=== PATIENT | male | born 1945 | race Caucasian/White ===

== ENCOUNTER 2024-04-27 10:59 | Day surgery (SDC) | payer MEDICARE, OTHER, SELFPAY ==
[2024-04-27] VITALS (10 sets, daily range): BP systolic 118–158; BP diastolic 75–89; BMI 21.1
[2024-04-27] MEDS: NSS 205 ML IV (11:25)
[2024-04-27 12:29] LABS: ACT-LR - POC 377 Seconds (116-155)
[2024-04-27 12:50] LABS: ACT-LR - POC 339 Seconds (116-155)
[2024-04-27] MEDS: NSS 1000 IV (13:40)
--- NOTE | 2024-04-27 13:50 | ITS.CL.CATH ---
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
Cardiac Catheterization
Procedure Report:
CARDIAC CATHETERIZATION REPORT
Date of Procedure: 04/27/2024
Referring: Santos Jonas MD
Indication: Progressive angina in patient with severe cardiac and severe pulmonary disease
HEMODYNAMIC DATA
AO: 144/68
LV: 144/11
LEFT VENTRICULOGRAPHY: Anterolateral hypokinesis with EF 40%. There is very impressive honeycombing of the lung zavala consistent with the known history of pulmonary fibrosis
CORONARY ANGIOGRAPHY
Dominance: Right
Left Main: Mild proximal stenosis.
LAD: The LAD is heavily calcified. There is 60% proximal LAD stenosis with 80% mid LAD stenosis just proximal to the origin of the previously stented segment. The stent itself remains widely patent with no restenosis. There is a second stent in
the more distal part of the mid LAD which is widely patent with no restenosis. However, distal to the stent is progressive disease with 70% stenosis. There is a 80% apical LAD stenosis. The medium sized first diagonal branch has some mild luminal
disease and 40% mid stenosis. The medium sized second diagonal which originates from the mid LAD stented segment has 60-70% ostial stenosis.
Circumflex: There is a small ramus intermedius branch without disease. A very large proximally arising OM1 has a widely patent stent in the mid portion with no restenosis and has otherwise mild luminal disease there is 80% circumflex stenosis just
distal to the takeoff of OM1. This is a highly angulated segment. There are several more distal obtuse marginal branches which are small without disease and the circumflex terminates with a medium sized left posterolateral branch which is not
diseased.
RCA: Tandem 80% and 90% mid RCA lesions both significantly progressed compared with the prior study from 2021. The RCA terminates with a small PDA and a small posterolateral branch
Angioplasty: At the conclusion of diagnostic study we discussed his multivessel CAD and options for treatment. Surgical revascularization would be probably the best treatment for his CAD; however, he has significant pulmonary fibrosis and requires
O2 for activity. He is at best a high risk surgical candidate and most likely a prohibitive surgical candidate. He and I both felt percutaneous revascularization is complete as we could safely give him would be the best plan. Accordingly I made a
decision to begin a staged revascularization first with multiple segments in the LAD with a plan to return in 1-2 weeks to treat the tandem high-grade mid RCA lesions. Heparin was used for anticoagulation. A 6 British EBU 3.75 guide catheter was
used. We were unable to get a BMW wire through the distal LAD disease. A hydrophilic whisper wire was successfully passed with some effort into the distal LAD. This was followed by balloon angioplasty of the distal LAD lesion with a 2.0 x 15 trek
to 8 sandy. With great LOC we were able to get a 2.5 x 23 Xience GRISEL to the distal LAD lesion where was deployed at 14 sandy then postdilated with a 2.5 NC trek to 18 sandy. We were unable to get a 3.0 x 18 Xience GRISEL across the mid LAD lesion. A 6
British guide liner was then advanced into the vessel and with this to enhance backup support we were able to get the 3.0 x 18 stent to treat the mid LAD lesion. The stent was placed proximally overlapping fashion with the previously placed mid LAD
stent. Deployment at 15 sandy was followed by postdilatation with a 3.0 NC trek to 17 sandy. The angiographic result was outstanding. We had noticed by this time that the proximal LAD lesion which angiographically appeared about 60% severity was
hemodynamically significant as any time a guide liner was passed into this lesion the systolic pressure fell 80-100 mmHg. We therefore placed a proximally overlapping 3.0 x 12 Xience GRISEL into the proximal LAD. The stent was deployed at 15 sandy then
postdilated with a 3.0 NC trek to 17 sandy. The final angiographic result at all lesion sites was outstanding with no residual stenosis. There were no procedural complications.
This was a complex procedure requiring multiple balloons and stents and several guidewires.
Closure Device: 6 British Angio-Seal RFA. Of note similar to 2021, we were easily able to cannulate the right radial artery but could not pass a soft guidewire more than several centimeters and converted to a femoral approach
Radiation (mGy): 728
DAP (cm2.Gy): 51.0
Fluoroscopy time: 16.1-minute
CONCLUSIONS
1: Severe triple-vessel CAD as described
2: Plan made for staged revascularization with PCI as he is either extremely high risk or prohibitive surgical candidate based on his lung disease.
3. Successful stenting of distal LAD disease using 2.5 x 23 Xience GRISEL
4. Successful stenting of mid LAD disease using 3.0 x 18 Xience GRISEL
5. Successful stenting of proximal LAD disease using 3.0 x 12 Xience GRISEL
6. Continue dual antiplatelet therapy for at least 12 months
7. The patient will return in 1-2 weeks for staged intervention of two high-grade RCA lesions. The proximal circumflex lesion is highly angulated and percutaneous treatment could only be done at very high risk. I would treat this lesion medically
Copy to: Santos Jonas MD, Boaz Travis MD
Romario Ornelas MD, [facility], [facility]
[2024-04-27 14:40] LABS: HDL Cholesterol 38 mg/dl; LDL Cholesterol, Calculated 76 mg/dl; Total Cholesterol 125 mg/dl (50-199); Triglyceride 58 mg/dl (10-149); Very Low Density Lipoprotein 11 mg/dl (0-30)
--- NOTE | 2024-04-27 16:06 | W.PN.UPDATE ---
Update Note
Progress Note Update
Pt seen post LAD PCI w/GRISEL x3. Right femoral cath site with dressing CDI, no ht/bleeding, non tender. Post EKG SB w/1st deg AVB 50s, no acute changes. Pt understands importance of uninterrupted DAPT w/asa, plavix. Residual CAD in RCA, staged
intervention scheduled for next 05/04. Cardiac rehab consulted. Adjust atorvastatin and stop omeprazole for protonix. Followup with Dr. Jonas after 2nd intervention as scheduled. Home later today if groin site/tele remain stable.
== END 2024-04-27 18:00 | disposition home or self-care (01) ==
LOC: CATH 10:59
PROVIDERS: Nurse Practitioner; ATTENDING PHYSICIAN Internal Medicine Cardiovascular Disease
DX: I25.110 Atherosclerotic heart disease of native coronary artery with unstable angina pectoris (principal); J84.10 Pulmonary fibrosis, unspecified; E78.5 Hyperlipidemia, unspecified; Z95.5 Presence of coronary angioplasty implant and graft; Z85.810 Personal history of malignant neoplasm of tongue; Z82.49 Family history of ischemic heart disease and other diseases of the circulatory system; Z79.02 Long term (current) use of antithrombotics/antiplatelets; Z79.82 Long term (current) use of aspirin
CPT/HCPCS: C1725; C1894; C1769; 80061; 85347; 93005; 93458; C1760; C1874; C9600; Q9967

== ENCOUNTER 2024-05-04 06:06 | Day surgery (SDC) | payer MEDICARE, OTHER, SELFPAY ==
[2024-05-04] VITALS (10 sets, daily range): BP systolic 131–159; BP diastolic 75–92; BMI 22.6
[2024-05-04] MEDS: NSS 221 ML IV (07:07)
[2024-05-04] MEDS: NSS 550 IV (09:00)
--- NOTE | 2024-05-04 09:02 | ITS.CL.ANGIO ---
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
Angioplasty
Procedure Report:
CORONARY ANGIOPLASTY REPORT
Date of Procedure: 05/04/2024
Referring: Santos Jonas MD
PROCEDURE SUMMARY:
Successful PCI for multisegment RCA disease using overlapping from distal to proximal 2.25 x 30 and 2.25 x 26 Presto frontier GRISEL
DESCRIPTION OF PROCEDURE: The patient returns for completion of his multivessel staged revascularization. He underwent LAD PCI 2 weeks earlier and now presents for PCI of complex RCA disease. Access was obtained via the left radial artery. A 6
Armenian AR-2 guide catheter was advanced to the ostium of the RCA. A BMW wire was successfully passed into the distal posterolateral branch. A 6 Armenian guide liner was used for backup support. Balloon angioplasty from the crux back to the mid RCA
was performed with overlapping inflations using a 2.0 x 25 Euphora balloon inflated to 10 sandy. We then placed from distal to proximal 2.25 x 30 and 2.25 x 26 overlapping stents. Each stent was deployed at 14 sandy and the entire segment postdilated
with a 2.25 NC Euphora to 17 sandy along the entire length of the stented segment. The final angiographic result was outstanding. There were no procedural complications.
ANTI-COAGULATION THERAPY
1: Heparin 6000 units
Closure Device Used: None-the procedure was performed via the left radial artery
Radiation (mGy): 668
DAP (cm2.Gy): 45.8
Fluoro time: 7.2 min
CONCLUSIONS: Successful stenting of multisegment RCA disease using overlapping 2.25 x 30 and 2.25 x 26 Parminder frontier GRISEL. Continue DAPT for total 12 months.
Copy to: Santos Jonas MD, Boaz Travis MD
Romario Ornelas MD, [facility], [facility]
[2024-05-04 09:54] LABS: ACT-LR - POC > 397 Seconds (116-155)
--- NOTE | 2024-05-04 12:23 | W.PN.UPDATE ---
Update Note
Progress Note Update
Pt seen post RCA PCI w/2 GRISEL. Right radial cath site without ht/bleeding. OOB to bathroom. Post EKG SB 1st deg AVB, 50s, no acute changes. Continue DAPT w/aspirin, plavix. Continue other meds as before. Cardiac rehab consulted. Followup with
Pritesh in 3 weeks as scheduled. Home later today if cath site/tele remain stable.
== END 2024-05-04 14:00 | disposition home or self-care (01) ==
LOC: CATH 06:06
PROVIDERS: ATTENDING PHYSICIAN Internal Medicine Cardiovascular Disease; FAMILY PHYSICIAN Family Medicine
DX: I25.10 Atherosclerotic heart disease of native coronary artery without angina pectoris (principal); Z95.5 Presence of coronary angioplasty implant and graft; R06.02 Shortness of breath; I45.10 Unspecified right bundle-branch block; Z85.810 Personal history of malignant neoplasm of tongue; Z79.82 Long term (current) use of aspirin; Z79.02 Long term (current) use of antithrombotics/antiplatelets
CPT/HCPCS: C1769; C1887; C1894; C1725; 85347; 93005; C1874; C9600; Q9967

== ENCOUNTER 2024-08-30 06:13 | Day surgery (SDC) | payer MEDICARE, OTHER, SELFPAY ==
[2024-08-28 11:10] VITALS: BMI 22.3
--- NOTE | 2024-08-28 11:18 | HPS.HSE ---
Family Physician
-
Family Physician: NO INTERVIEW UNKNOWN
Chief Complaint
-
Shortness of breath.
History of Present Illness
The patient is a 78 year old male presenting today for shortness of breath. His shortness of breath is noted mostly with exertion. It has progressively worsened over the last 6 months. He does report occasional chest pressure associated
with his dyspnea. He was previously diagnosed with interstitial lung disease and obstructive sleep apnea for which he follows pulmonary. He is on medical therapy with Arformoterol, Budesonide, Ofev, and Yupelri. Despite pharmacological therapy, his
dyspnea has only continued to worsen. He does use supplemental oxygen therapy at bedtime and 1-3 liters as needed with exertion. It is recommended he proceed with a right cardiac catheterization at this time to assess his pulmonary artery pressure
and volume status. He denies any other complaints today, such as chest pain at rest, nausea, vomiting, diarrhea, lightheadedness, dizziness, cough, sore throat, or fever.
Medical History
Past Medical History
Past Medical History: Reports Other
Additional Past Medical History:
1. Shortness of breath.
2. Coronary artery disease, status post PCI with drug eluting stent to mid LAD 2018, PCI with drug eluting stent to LAD and OM1 2021, PCI with drug eluting stent to LAD x3 04/27/2024, and PCI with drug eluting stent to RCA x2 05/04/2024; on
dual-antiplatelet therapy.
3. Atrial fibrillation, pharmacological therapy with Cardizem.
4. First degree AV block.
5. Right bundle branch block.
6. Venous varicosities with insufficiency.
7. Interstitial lung disease, on daytime supplemental oxygen as needed.
8. Obstructive sleep apnea, on 1 liter supplemental oxygen at bedtime.
9. Chronic postnasal drip.
10. Dysphagia.
11. Chronic diarrhea.
12. Hemorrhoids.
13. History of multiple concussions.
14. Hypothyroidism.
15. Osteoarthritis.
16. Rheumatoid arthritis, on Methotrexate.
17. BPH with LUTS.
18. Squamous cell carcinoma of tongue, 2019, status post chemotherapy and radiation.
19. Epistaxis due to dual-antiplatelet therapy.
20. Hearing impairment.
21. Remote history of tobacco abuse.
Past Surgical History: Reports Other
Additional Past Surgical History:
1. PCI with drug eluting stent to mid LAD 2018.
2. PCI with drug eluting stent to LAD and OM1 2021.
3. PCI with drug eluting stent to LAD x3 04/27/2024.
4. PCI with drug eluting stent to RCA x2 05/04/2024.
5. Appendectomy.
6. Multiple MOHS.
7. Colonoscopy x3.
Social History
Tobacco: Former Smoker (Denies previous cigarette smoking. Reports to pipe smoking in his college years. )
Alcohol: Other (Rare. )
Personal:
Living: Other (He lives in a 1 story home with his . )
Family History
Family History: Not pertinent
Allergies / Home Medications
Allergy/Medication List:
Home medications:
1. Tylenol arthritis 650 mg p.o. every 12 hours as needed.
2. Arformoterol 2 ml inhaled twice a day.
3. Aspirin 81 mg p.o. Mondays, Wednesdays, and Fridays.
4. Atorvastatin 20 mg p.o. every evening.
5. Budesonide 0.25 mg inhaled twice a day.
6. Cholecalciferol 1000 units p.o. twice a day.
7. Clopidogrel 75 mg p.o. daily.
8. Cardizem 240 mg p.o. daily.
9. Folic acid 1 mg p.o. daily.
10. Isosorbide dinitrate 10 mg p.o. twice a day.
11. Levothyroxine 75 mcg p.o. daily.
12. Methotrexate 10 mg p.o. weekly.
13. Centrum silver multivitamin 1 tab p.o. daily.
14. Nitroglycerin 0.4 mg sublingual every 5 minutes as needed (max 3 doses).
15. Ofev 150 mg p.o. every 12 hours.
16. Flomax 0.4 mg p.o. daily.
17. Yupelri 175 mcg inhaled at noon.
Allergies: No known allergies.
Review of Systems
-
A 12 point ROS was completed and negative except as noted: Yes
Physical Exam
Vital Signs
Blood pressure 119/76. Heart rate 78. Respirations 18. Pulse ox 93% on room air.
Height 5 feet, 9 inches. Weight 68.3 kg. BMI 22.2.
Physical Exam
General: Well Developed, Well Nourished and No Apparent Distress
HEENT: NormoCephalic, Moist mucous membranes and Atraumatic
Respiratory: Other (Diffuse chronic crackles. )
Cardiac: Regular Rhythm
GI: Soft, Non Tender and Non Distended
Musculoskeletal: No Edema and Normal Gait & Station
Skin: Warm and Dry
Neuro: AO x 3 and Nonfocal/grossly intact
Laboratory Results
-
EKG 08/28/2024: Sinus rhythm with first degree AV block. Rightward axis. ST ad marked T wave abnormality, consider anterolateral ischemia.
Impression/Plan
-
IMPRESSION/PLAN:
1. Shortness of breath: It is recommended the patient proceed with a right cardiac catheterization given his ongoing, progressively worsening dyspnea. This procedure will take place on 08/30/[address] Romario Ornelas. The benefits and risks of
the procedure have been explained to the patient. The patient understands these risks and wishes to proceed.
[2024-08-30] VITALS (12 sets, daily range): BP systolic 112–146; BP diastolic 62–78
--- NOTE | 2024-08-30 08:08 | ITS.CL.CATH ---
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
Cardiac Catheterization
Procedure Report:
RIGHT HEART CATHETERIZATION
Date of Procedure: 08/30/2024
Referring: Santos Jonas MD
�
INDICATION: Shortness of breath/hypoxia
�
RHC performed at weight 150 pounds on room air
RA: 2
RV: 65/7
PA: 65/22
PCWP: 7
Oximetry: Ao 90%, PA 61%, cardiac output 4.2, cardiac index 2.3
�
COMPLICATIONS: None
�
Radiation (mGy): 22
DAP (cm2.Gy): 2.9
Fluoroscopy time: 3.1 minutes
�
CONCLUSION: Normal left sided and right-sided diastolic filling pressures with moderate to severe pulmonary hypertension. Fluoroscopy shows very severe diffuse honeycombing of the lungs bilaterally consistent with advanced pulmonary fibrosis.
There is no role for diuretic therapy as he is euvolemic. I suspect his hypoxemia and pulmonary hypertension is due to the severity of his pulmonary fibrosis. He currently uses O2 2 L/min on a as needed basis and may benefit from continuous O2.
�
Copy to: Santos Jonas MD, Boaz Travis MD, Hector Nguyen DO (Nader, GLORIA)
�
Romario Ornelas MD, [facility], [facility]
�
== END 2024-08-30 10:48 | disposition home or self-care (01) ==
LOC: CATH 06:13
PROVIDERS: ATTENDING PHYSICIAN Internal Medicine Cardiovascular Disease; FAMILY PHYSICIAN Family Medicine; OTHER PHYSICIAN Internal Medicine Cardiovascular Disease
DX: I27.20 Pulmonary hypertension, unspecified (principal); R09.02 Hypoxemia; J84.10 Pulmonary fibrosis, unspecified; R06.02 Shortness of breath; I25.10 Atherosclerotic heart disease of native coronary artery without angina pectoris; Z95.5 Presence of coronary angioplasty implant and graft; I48.91 Unspecified atrial fibrillation; I44.0 Atrioventricular block, first degree; I45.10 Unspecified right bundle-branch block; G47.33 Obstructive sleep apnea (adult) (pediatric); E03.9 Hypothyroidism, unspecified; Z85.810 Personal history of malignant neoplasm of tongue; Z87.891 Personal history of nicotine dependence; Z79.02 Long term (current) use of antithrombotics/antiplatelets; Z79.82 Long term (current) use of aspirin
CPT/HCPCS: 93005; 93451